=== PATIENT | male | born 1960 | race Two or more races ===

== ENCOUNTER 2021-02-16 15:21 | Inpatient (IN) | payer BC, MEDICAID ==
[2021-02-16] VITALS (17 sets, daily range): BP systolic 81–170; BP diastolic 40–65
[~2021-02-16] VITALS: Ht 175.3 cm; Wt 122.2 kg
[2021-02-16] MEDS: MIDAZOLAM DRIP 50 mg/50mL 50 ML IV SCH (15:33)
[2021-02-16] MEDS ORDERED: ETOMIDATE (2MG/ML) 20ML VIAL IV ONE (15:45)
[2021-02-16] MEDS ORDERED: SUCCINYLCHOLINE CHLORIDE 20 MG/ML 10ML VIAL IV ONE (15:45)
[2021-02-16] MEDS ORDERED: MIDAZOLAM HCL 5 MG/ML-1ML VIAL IV ONE (15:45)
[2021-02-16] MEDS ORDERED: NOREPINEPHRINE 8 MG/250ML KIT 250 ML IV ONE (15:52)
[2021-02-16] MEDS: NOREPINEPHRINE 8 MG/250ML KIT 250 ML IV SCH (15:56)
[2021-02-16] MEDS ORDERED: AMIODARONE HCL (50 MG/ ML) 3 ML VIAL IV ONE (15:58)
[2021-02-16] MEDS ORDERED: AMIODARONE HCL 150 MG in D5W 5% 100 ML IV ONE (16:00)
[2021-02-16 16:06] LABS: Basophils # (auto) 0 10 ^3/uL (0-0.2); Basophils % (auto) 0.3 % (0.0-2.0); Eosinophils # (auto) 0.2 10 ^3/uL (0-0.8); Eosinophils % (auto) 2.1 % (0.0-7.0); Hematocrit 41.2 % (41.0-53.0); Hemoglobin 13.8 g/dL (13.5-17.5); Mean Corpuscular Hemoglobin 30.1 pg (28.0-32.0); Mean Corpuscular Hgb Conc. 33.5 g/dL (32.0-36.0); Mean Corpuscular Volume 89.7 fL (80.0-100.0); Monocytes # (auto) 0.7 10 ^3/uL (0-1.3); Monocytes % (auto) 7.9 % (0.0-12.0); Neutrophils # (auto) 6.1 10 ^3/uL (1.6-8.6); Neutrophils % (auto) 67.7 % (37.0-80.0); Nucleated Red Blood Cells % 0.1 %; Platelet Count (auto) 156 10^3/uL (140-450); Red Cell Distribution Width 17.3 % (11.8-14.3); White Blood Cell 9.1 10^3/uL (4.4-10.8)
[2021-02-16] MEDS ORDERED: AMIODARONE 450mg/250ml AE 250 ML IV SCH (16:15)
[2021-02-16 16:19] LABS: Albumin 3.6 g/dL (3.4-5.0); Calcium 8.8 mg/dL (8.5-10.1); Magnesium 2.6 mg/dL (1.6-2.6); Potassium 4.1 mmol/L (3.5-5.1)
[2021-02-16 16:25] LABS: BUN/Creatinine Ratio 18.8; Bilirubin, Total 0.5 mg/dL (0.2-1.0); CRP High Sensitivity 0.72 mg/dL (< 0.3); Total Protein 7.9 g/dL (6.4-8.2)
[2021-02-16] MEDS ORDERED: cefTRIAXone 1GM/50ML D5W 50 ML IV ONE (16:30)
[2021-02-16] MEDS ORDERED: CLINDAMYCIN 600MG IV 50 ML IV ONE (16:30)
[2021-02-16 17:04] LABS: INR 1.23 (0.9-1.15); Partial Thromboplastin Time 26.7 sec (23.0-31.2)
[2021-02-16] MEDS ORDERED: ENOXAPARIN SOD 150 MG/1 ML SYRINGE SC ONE (17:15)
[2021-02-16] MEDS ORDERED: MORPHINE SULF INJ 2 MG/ML SYRINGE 1ML IV PRN (18:00)
[2021-02-16] MEDS ORDERED: FUROSEMIDE 20 MG/2 ML VIAL IV ONE (18:00)
[2021-02-16] MEDS ORDERED: ASPirin-EC 325mg tab PO ONE (18:00)
[2021-02-16] MEDS: PHENYLEPHRINE INJ 40 MG in SODIUM CHL 0.9% 246 ML IV SCH (18:00)
[2021-02-16] MEDS ORDERED: NITROGLYCERIN 0.4 MG SL TAB SL PRN (18:00)
[2021-02-16] MEDS ORDERED: HEPARIN DRIP/D5W 100UNITS/ML 250 ML IV SCH (18:00)
[2021-02-16] MEDS ORDERED: HEPARIN SODIUM (PORCINE) 5000 UNITS/ML 1ML VIAL IV ONE (18:00)
[2021-02-16] MEDS ORDERED: ASPirin 325 MG TAB PO ONE (18:30)
[2021-02-16] MEDS: PIPERACILLIN-TAZOB 3.375GM 100 ML IV SCH (18:55)
[2021-02-16 19:46] LABS: Urine Amorphous Crystal FEW /hpf (None Seen); Urine Bacteria NONE SEEN /hpf (None Seen); Urine Blood 3+ /uL (Negative); Urine Mucus FEW (None Seen); Urine Specific Gravity 1.015 (1.001-1.035); Urine WBC 85 /hpf (0 - 3); Urine WBC Clumps PRESENT /hpf (None Seen)
[2021-02-16] MEDS: AMIODARONE 450mg/250ml AE 250 ML IV SCH (23:19)
[2021-02-17] VITALS (68 sets, daily range): BP systolic 72–141; BP diastolic 28–69
[2021-02-17] MEDS: MIDAZOLAM DRIP 50 mg/50mL 50 ML IV SCH ×5 (00:24→16:45)
[2021-02-17] MEDS: PIPERACILLIN-TAZOB 3.375GM 100 ML IV SCH ×4 (00:29→18:12)
[2021-02-17] MEDS: fentaNYL Drip 2500mCg/250mlNS 250 ML IV SCH ×3 (00:45→21:42)
[2021-02-17] MEDS: PROPOFOL 100 ML IV SCH (00:45)
[2021-02-17] MEDS ORDERED: SULF400I3 PO (01:38)
[2021-02-17] MEDS ORDERED: POTA10TA51 PO (01:38)
[2021-02-17] MEDS ORDERED: CLIN150C PO (01:38)
[2021-02-17] MEDS ORDERED: FURO20TA3 PO (01:38)
[2021-02-17 03:58] LABS: Basophils # (auto) 0 10 ^3/uL (0-0.2); Basophils % (auto) 0.2 % (0.0-2.0); Eosinophils # (auto) 0 10 ^3/uL (0-0.8); Eosinophils % (auto) 0.1 % (0.0-7.0); Hematocrit 39.1 % (41.0-53.0); Hemoglobin 13.3 g/dL (13.5-17.5); Lymphocytes # (auto) 0.9 10 ^3/uL (0.4-5.4); Lymphocytes % (auto) 8.6 % (10.0-50.0); Mean Corpuscular Hemoglobin 30.3 pg (28.0-32.0); Mean Corpuscular Volume 89.1 fL (80.0-100.0); Monocytes # (auto) 1.1 10 ^3/uL (0-1.3); Monocytes % (auto) 9.9 % (0.0-12.0); Neutrophils # (auto) 8.7 10 ^3/uL (1.6-8.6); Neutrophils % (auto) 81.2 % (37.0-80.0); Nucleated Red Blood Cells % 0.1 %; Platelet Count (auto) 144 10^3/uL (140-450); Red Blood Cells 4.39 10^6/uL (4.5-5.90); Red Cell Distribution Width 17.2 % (11.8-14.3); White Blood Cell 10.7 10^3/uL (4.4-10.8)
[2021-02-17 04:16] LABS: INR 1.21 (0.9-1.15); Partial Thromboplastin Time 31.5 sec (23.0-31.2)
[2021-02-17 04:22] LABS: Calcium 8.6 mg/dL (8.5-10.1); Potassium 4.4 mmol/L (3.5-5.1)
[2021-02-17 04:28] LABS: BUN/Creatinine Ratio 13.7
[2021-02-17] MEDS ORDERED: ENOXAPARIN SOD 150 MG/1 ML SYRINGE SC SCH (06:00)
[2021-02-17] MEDS: NOREPINEPHRINE 8 MG/250ML KIT 250 ML IV SCH ×2 (06:11→21:39)
[2021-02-17] MEDS: ASPirin-EC 81 mg tab PO SCH (10:00)
[2021-02-17] MEDS: PHENYLEPHRINE INJ 40 MG in SODIUM CHL 0.9% 246 ML IV SCH (10:40)
[2021-02-17] MEDS: HEPARIN DRIP/D5W 100UNITS/ML 250 ML IV SCH (11:51)
[2021-02-17] MEDS: AMIODARONE 450mg/250ml AE 250 ML IV SCH (13:15)
[2021-02-17 13:30] LABS: Basophils # (auto) 0 10 ^3/uL (0-0.2); Basophils % (auto) 0.3 % (0.0-2.0); Eosinophils # (auto) 0.2 10 ^3/uL (0-0.8); Eosinophils % (auto) 1.5 % (0.0-7.0); Hematocrit 39.3 % (41.0-53.0); Hemoglobin 13.2 g/dL (13.5-17.5); Lymphocytes # (auto) 1.2 10 ^3/uL (0.4-5.4); Lymphocytes % (auto) 11.5 % (10.0-50.0); Mean Corpuscular Hemoglobin 29.8 pg (28.0-32.0); Mean Corpuscular Hgb Conc. 33.5 g/dL (32.0-36.0); Monocytes # (auto) 1.1 10 ^3/uL (0-1.3); Monocytes % (auto) 11.1 % (0.0-12.0); Neutrophils # (auto) 7.6 10 ^3/uL (1.6-8.6); Neutrophils % (auto) 75.6 % (37.0-80.0); Nucleated Red Blood Cells % 0.1 %; Platelet Count (auto) 137 10^3/uL (140-450); Red Blood Cells 4.42 10^6/uL (4.5-5.90); Red Cell Distribution Width 17.4 % (11.8-14.3); White Blood Cell 10.1 10^3/uL (4.4-10.8)
[2021-02-17 13:43] LABS: INR 1.29 (0.9-1.15); Partial Thromboplastin Time 39.9 sec (23.0-31.2)
[2021-02-17 21:48] LABS: INR 1.3 (0.9-1.15); Partial Thromboplastin Time 56.7 sec (23.0-31.2)
[2021-02-17 22:32] LABS: Magnesium 2.4 mg/dL (1.6-2.6); Potassium 3.8 mmol/L (3.5-5.1)
[2021-02-18] VITALS (75 sets, daily range): BP systolic 89–123; BP diastolic 36–68
[2021-02-18] MEDS: MIDAZOLAM DRIP 50 mg/50mL 50 ML IV SCH ×5 (00:12→17:57)
[2021-02-18] MEDS: PIPERACILLIN-TAZOB 3.375GM 100 ML IV SCH ×2 (00:12→06:09)
[2021-02-18] MEDS: PROPOFOL 100 ML IV SCH (00:13)
[2021-02-18 02:42] LABS: INR 1.29 (0.9-1.15)
[2021-02-18 02:47] LABS: Partial Thromboplastin Time 73.4 sec (23.0-31.2)
[2021-02-18] MEDS: PHENYLEPHRINE INJ 40 MG in SODIUM CHL 0.9% 246 ML IV SCH ×2 (03:20→20:00)
[2021-02-18] MEDS: AMIODARONE 450mg/250ml AE 250 ML IV SCH ×2 (04:15→19:15)
[2021-02-18 04:26] LABS: Calcium 8.4 mg/dL (8.5-10.1); Potassium 3.9 mmol/L (3.5-5.1)
[2021-02-18 04:33] LABS: BUN/Creatinine Ratio 11.2
[2021-02-18 04:34] LABS: Basophils # (auto) 0 10 ^3/uL (0-0.2); Basophils % (auto) 0.2 % (0.0-2.0); Eosinophils # (auto) 0.2 10 ^3/uL (0-0.8); Hematocrit 37.3 % (41.0-53.0); Lymphocytes % (auto) 9.1 % (10.0-50.0); Mean Corpuscular Hemoglobin 30.7 pg (28.0-32.0); Mean Corpuscular Hgb Conc. 34.7 g/dL (32.0-36.0); Mean Corpuscular Volume 88.6 fL (80.0-100.0); Monocytes # (auto) 0.9 10 ^3/uL (0-1.3); Monocytes % (auto) 8.1 % (0.0-12.0); Neutrophils # (auto) 8.5 10 ^3/uL (1.6-8.6); Neutrophils % (auto) 80.6 % (37.0-80.0); Nucleated Red Blood Cells % 0.1 %; Platelet Count (auto) 126 10^3/uL (140-450); Red Blood Cells 4.22 10^6/uL (4.5-5.90); Red Cell Distribution Width 16.9 % (11.8-14.3); White Blood Cell 10.5 10^3/uL (4.4-10.8)
[2021-02-18] MEDS: HEPARIN DRIP/D5W 100UNITS/ML 250 ML IV SCH (06:12)
[2021-02-18] MEDS: SODIUM CHLORIDE 0.9% 1,000 ML IV SCH ×2 (08:08→20:53)
[2021-02-18 09:00] LABS: INR 1.3 (0.9-1.15)
[2021-02-18 09:02] LABS: Partial Thromboplastin Time 76.9 sec (23.0-31.2)
[2021-02-18] MEDS: ASPirin-EC 81 mg tab PO SCH (11:11)
[2021-02-18] MEDS: MEROPENEM 1GM IVPB 100 ML IV SCH ×2 (14:41→21:23)
[2021-02-18 15:45] LABS: INR 1.25 (0.9-1.15); Partial Thromboplastin Time 61.3 sec (23.0-31.2)
[2021-02-18] MEDS: NOREPINEPHRINE 8 MG/250ML KIT 250 ML IV SCH (20:53)
[2021-02-18] MEDS: fentaNYL Drip 2500mCg/250mlNS 250 ML IV SCH (21:10)
[2021-02-18 21:28] LABS: INR 1.28 (0.9-1.15); Partial Thromboplastin Time 55.3 sec (23.0-31.2)
[2021-02-19] VITALS (96 sets, daily range): BP systolic 82–146; BP diastolic 40–88
[2021-02-19] MEDS: PROPOFOL 100 ML IV SCH (00:45)
[2021-02-19 01:32] LABS: Protein, Urine 48.6 mg/dL (0.0-11.9)
[2021-02-19 01:43] LABS: Urine Amorphous Crystal MANY /hpf (None Seen); Urine Bacteria FEW /hpf (None Seen); Urine Blood 2+ /uL (Negative); Urine Specific Gravity 1.014 (1.001-1.035); Urine WBC 37 /hpf (0 - 3)
[2021-02-19 03:35] LABS: INR 1.32 (0.9-1.15); Partial Thromboplastin Time 51.7 sec (23.0-31.2)
[2021-02-19 04:04] LABS: Basophils # (auto) 0 10 ^3/uL (0-0.2); Basophils % (auto) 0.2 % (0.0-2.0); Eosinophils # (auto) 0.4 10 ^3/uL (0-0.8); Eosinophils % (auto) 4.2 % (0.0-7.0); Hematocrit 35.6 % (41.0-53.0); Hemoglobin 12.2 g/dL (13.5-17.5); Lymphocytes # (auto) 1.2 10 ^3/uL (0.4-5.4); Lymphocytes % (auto) 12.9 % (10.0-50.0); Mean Corpuscular Hemoglobin 30.4 pg (28.0-32.0); Mean Corpuscular Hgb Conc. 34.3 g/dL (32.0-36.0); Mean Corpuscular Volume 88.4 fL (80.0-100.0); Monocytes # (auto) 0.7 10 ^3/uL (0-1.3); Monocytes % (auto) 7.6 % (0.0-12.0); Neutrophils # (auto) 7.1 10 ^3/uL (1.6-8.6); Neutrophils % (auto) 75.1 % (37.0-80.0); Platelet Count (auto) 123 10^3/uL (140-450); Red Blood Cells 4.02 10^6/uL (4.5-5.90); Red Cell Distribution Width 17.1 % (11.8-14.3); White Blood Cell 9.4 10^3/uL (4.4-10.8)
[2021-02-19 04:17] LABS: BUN/Creatinine Ratio 11.2; Magnesium 2.3 mg/dL (1.6-2.6); Potassium 3.7 mmol/L (3.5-5.1)
[2021-02-19] MEDS: MIDAZOLAM DRIP 50 mg/50mL 50 ML IV SCH ×2 (04:40→19:38)
[2021-02-19] MEDS: MEROPENEM 1GM IVPB 100 ML IV SCH ×3 (06:01→21:43)
[2021-02-19] MEDS: HEPARIN DRIP/D5W 100UNITS/ML 250 ML IV SCH (08:37)
[2021-02-19] MEDS: ASPirin-EC 81 mg tab PO SCH (10:00)
[2021-02-19] MEDS: AMIODARONE 450mg/250ml AE 250 ML IV SCH (10:15)
[2021-02-19] MEDS: SODIUM CHLORIDE 0.9% 1,000 ML IV SCH ×2 (11:15→23:31)
[2021-02-19] MEDS: NOREPINEPHRINE 8 MG/250ML KIT 250 ML IV SCH (12:10)
[2021-02-19] MEDS: PHENYLEPHRINE INJ 40 MG in SODIUM CHL 0.9% 246 ML IV SCH (12:40)
[2021-02-19] MEDS ORDERED: hydrALAZINE HCL 20 MG/ML VL IV PRN (16:00)
[2021-02-19] MEDS: AMIODARONE HCL 200 MG TAB GT SCH (21:43)
[2021-02-20] VITALS (107 sets, daily range): BP systolic 87–136; BP diastolic 38–88
[2021-02-20] MEDS: PROPOFOL 100 ML IV SCH (00:45)
[2021-02-20] MEDS: NOREPINEPHRINE 8 MG/250ML KIT 250 ML IV SCH ×2 (01:30→14:50)
[2021-02-20 04:01] LABS: Basophils # (auto) 0 10 ^3/uL (0-0.2); Basophils % (auto) 0.3 % (0.0-2.0); Eosinophils # (auto) 0.5 10 ^3/uL (0-0.8); Eosinophils % (auto) 6.8 % (0.0-7.0); Hematocrit 34.2 % (41.0-53.0); Hemoglobin 11.6 g/dL (13.5-17.5); Lymphocytes # (auto) 1.1 10 ^3/uL (0.4-5.4); Lymphocytes % (auto) 15.4 % (10.0-50.0); Mean Corpuscular Hemoglobin 30.5 pg (28.0-32.0); Mean Corpuscular Volume 89.7 fL (80.0-100.0); Monocytes # (auto) 0.6 10 ^3/uL (0-1.3); Monocytes % (auto) 8.5 % (0.0-12.0); Neutrophils # (auto) 4.8 10 ^3/uL (1.6-8.6); Nucleated Red Blood Cells % 0.2 %; Platelet Count (auto) 120 10^3/uL (140-450); Red Blood Cells 3.81 10^6/uL (4.5-5.90); Red Cell Distribution Width 17.1 % (11.8-14.3)
[2021-02-20 04:02] LABS: INR 1.29 (0.9-1.15); Partial Thromboplastin Time 50.3 sec (23.0-31.2)
[2021-02-20 04:04] LABS: BUN/Creatinine Ratio 11.8; Potassium 3.8 mmol/L (3.5-5.1)
[2021-02-20] MEDS: PHENYLEPHRINE INJ 40 MG in SODIUM CHL 0.9% 246 ML IV SCH ×2 (05:20→22:00)
[2021-02-20] MEDS: MEROPENEM 1GM IVPB 100 ML IV SCH ×3 (05:30→22:06)
[2021-02-20] MEDS: MIDAZOLAM DRIP 50 mg/50mL 50 ML IV SCH ×4 (05:31→17:49)
[2021-02-20] MEDS: fentaNYL Drip 2500mCg/250mlNS 250 ML IV SCH ×2 (08:00→22:07)
[2021-02-20] MEDS: AMIODARONE HCL 200 MG TAB GT SCH ×2 (10:30→22:06)
[2021-02-20] MEDS ORDERED: ASPirin 81 mg TAB ONE (10:41)
[2021-02-20] MEDS: HEPARIN DRIP/D5W 100UNITS/ML 250 ML IV SCH (11:30)
[2021-02-20] MEDS: SODIUM CHLORIDE 0.9% 1,000 ML IV SCH (14:54)
[2021-02-21] VITALS (103 sets, daily range): BP systolic 87–146; BP diastolic 42–92
[2021-02-21] MEDS: PROPOFOL 100 ML IV SCH (00:45)
[2021-02-21] MEDS: MIDAZOLAM DRIP 50 mg/50mL 50 ML IV SCH ×5 (00:45→20:45)
[2021-02-21] MEDS: SODIUM CHLORIDE 0.9% 1,000 ML IV SCH ×2 (02:36→14:51)
[2021-02-21] MEDS: NOREPINEPHRINE 8 MG/250ML KIT 250 ML IV SCH ×2 (04:10→17:28)
[2021-02-21 04:12] LABS: Basophils # (auto) 0 10 ^3/uL (0-0.2); Basophils % (auto) 0.3 % (0.0-2.0); Eosinophils # (auto) 0.4 10 ^3/uL (0-0.8); Eosinophils % (auto) 8.2 % (0.0-7.0); Hematocrit 33.3 % (41.0-53.0); Hemoglobin 11.2 g/dL (13.5-17.5); Lymphocytes # (auto) 0.9 10 ^3/uL (0.4-5.4); Lymphocytes % (auto) 19.5 % (10.0-50.0); Mean Corpuscular Hemoglobin 30.2 pg (28.0-32.0); Mean Corpuscular Hgb Conc. 33.7 g/dL (32.0-36.0); Mean Corpuscular Volume 89.4 fL (80.0-100.0); Monocytes # (auto) 0.6 10 ^3/uL (0-1.3); Monocytes % (auto) 11.5 % (0.0-12.0); Neutrophils # (auto) 2.9 10 ^3/uL (1.6-8.6); Neutrophils % (auto) 60.5 % (37.0-80.0); Nucleated Red Blood Cells % 0.1 %; Platelet Count (auto) 113 10^3/uL (140-450); Red Blood Cells 3.72 10^6/uL (4.5-5.90); Red Cell Distribution Width 17.4 % (11.8-14.3); White Blood Cell 4.8 10^3/uL (4.4-10.8)
[2021-02-21 04:28] LABS: BUN/Creatinine Ratio 14.9; Calcium 8.2 mg/dL (8.5-10.1); Potassium 4.1 mmol/L (3.5-5.1)
[2021-02-21 04:31] LABS: INR 1.24 (0.9-1.15); Partial Thromboplastin Time 47.8 sec (23.0-31.2)
[2021-02-21] MEDS: MEROPENEM 1GM IVPB 100 ML IV SCH ×3 (06:06→22:11)
[2021-02-21] MEDS: HEPARIN DRIP/D5W 100UNITS/ML 250 ML IV SCH (11:30)
[2021-02-21] MEDS: ASPirin 81 mg TAB PO SCH (11:40)
[2021-02-21] MEDS: AMIODARONE HCL 200 MG TAB GT SCH ×2 (11:40→22:12)
[2021-02-21 12:10] LABS: INR 1.22 (0.9-1.15); Partial Thromboplastin Time 53.4 sec (23.0-31.2)
[2021-02-21] MEDS: PHENYLEPHRINE INJ 40 MG in SODIUM CHL 0.9% 246 ML IV SCH (12:42)
[2021-02-21 18:44] LABS: INR 1.24 (0.9-1.15); Partial Thromboplastin Time 51.2 sec (23.0-31.2)
[2021-02-22] VITALS (77 sets, daily range): BP systolic 95–153; BP diastolic 41–90
[2021-02-22] MEDS: PROPOFOL 100 ML IV SCH (00:45)
[2021-02-22 00:58] LABS: INR 1.22 (0.9-1.15); Partial Thromboplastin Time 54.3 sec (23.0-31.2)
[2021-02-22] MEDS: MIDAZOLAM DRIP 50 mg/50mL 50 ML IV SCH ×5 (01:45→21:45)
[2021-02-22] MEDS: fentaNYL Drip 2500mCg/250mlNS 250 ML IV SCH ×2 (03:09→20:05)
[2021-02-22] MEDS: HEPARIN DRIP/D5W 100UNITS/ML 250 ML IV SCH ×3 (03:13→22:27)
[2021-02-22 04:30] LABS: Basophils # (auto) 0 10 ^3/uL (0-0.2); Basophils % (auto) 0.3 % (0.0-2.0); Eosinophils # (auto) 0.4 10 ^3/uL (0-0.8); Eosinophils % (auto) 7.3 % (0.0-7.0); Hematocrit 32.7 % (41.0-53.0); Hemoglobin 11.1 g/dL (13.5-17.5); Lymphocytes # (auto) 0.8 10 ^3/uL (0.4-5.4); Lymphocytes % (auto) 13.9 % (10.0-50.0); Mean Corpuscular Hemoglobin 30.1 pg (28.0-32.0); Mean Corpuscular Volume 88.5 fL (80.0-100.0); Monocytes # (auto) 0.7 10 ^3/uL (0-1.3); Monocytes % (auto) 11.9 % (0.0-12.0); Neutrophils # (auto) 3.8 10 ^3/uL (1.6-8.6); Neutrophils % (auto) 66.6 % (37.0-80.0); Nucleated Red Blood Cells % 0.1 %; Platelet Count (auto) 116 10^3/uL (140-450); Red Cell Distribution Width 17.3 % (11.8-14.3); White Blood Cell 5.7 10^3/uL (4.4-10.8)
[2021-02-22 04:43] LABS: BUN/Creatinine Ratio 17.7; Calcium 8.3 mg/dL (8.5-10.1); Potassium 4.2 mmol/L (3.5-5.1)
[2021-02-22 04:50] LABS: INR 1.24 (0.9-1.15); Partial Thromboplastin Time 51.3 sec (23.0-31.2)
[2021-02-22] MEDS: SODIUM CHLORIDE 0.9% 1,000 ML IV SCH ×3 (04:50→20:50)
[2021-02-22] MEDS: MEROPENEM 1GM IVPB 100 ML IV SCH (05:42)
[2021-02-22] MEDS: NOREPINEPHRINE 8 MG/250ML KIT 250 ML IV SCH ×2 (06:50→20:10)
[2021-02-22] MEDS: PHENYLEPHRINE INJ 40 MG in SODIUM CHL 0.9% 246 ML IV SCH (07:20)
[2021-02-22] MEDS: ASPirin 81 mg TAB PO SCH (11:00)
[2021-02-22] MEDS: AMIODARONE HCL 200 MG TAB GT SCH ×2 (11:00→21:51)
[2021-02-22] MEDS ORDERED: ceFAZolin 1GM/50ML 50 ML IV ONE (12:15)
[2021-02-22] MEDS: ceFAZolin 1GM/50ML 50 ML IV SCH ×2 (14:06→21:51)
[2021-02-23] VITALS (70 sets, daily range): BP systolic 100–157; BP diastolic 38–96
[2021-02-23] MEDS: PROPOFOL 100 ML IV SCH (00:45)
[2021-02-23] MEDS: MIDAZOLAM DRIP 50 mg/50mL 50 ML IV SCH ×5 (02:45→22:45)
[2021-02-23] MEDS: SODIUM CHLORIDE 0.9% 1,000 ML IV SCH ×2 (02:51→23:00)
[2021-02-23 03:35] LABS: Basophils # (auto) 0 10 ^3/uL (0-0.2); Basophils % (auto) 0.3 % (0.0-2.0); Eosinophils # (auto) 0.4 10 ^3/uL (0-0.8); Eosinophils % (auto) 5.5 % (0.0-7.0); Hematocrit 32.8 % (41.0-53.0); Hemoglobin 10.8 g/dL (13.5-17.5); Lymphocytes # (auto) 0.7 10 ^3/uL (0.4-5.4); Lymphocytes % (auto) 10.2 % (10.0-50.0); Mean Corpuscular Hemoglobin 29.5 pg (28.0-32.0); Mean Corpuscular Volume 89.2 fL (80.0-100.0); Monocytes # (auto) 0.8 10 ^3/uL (0-1.3); Monocytes % (auto) 11.8 % (0.0-12.0); Neutrophils # (auto) 4.9 10 ^3/uL (1.6-8.6); Neutrophils % (auto) 72.2 % (37.0-80.0); Platelet Count (auto) 111 10^3/uL (140-450); Red Blood Cells 3.68 10^6/uL (4.5-5.90); Red Cell Distribution Width 17.7 % (11.8-14.3); White Blood Cell 6.8 10^3/uL (4.4-10.8)
[2021-02-23 03:50] LABS: INR 1.2 (0.9-1.15); Partial Thromboplastin Time 56.1 sec (23.0-31.2)
[2021-02-23 03:52] LABS: BUN/Creatinine Ratio 21.4; Calcium 8.4 mg/dL (8.5-10.1); Potassium 4.4 mmol/L (3.5-5.1)
[2021-02-23] MEDS: ceFAZolin 1GM/50ML 50 ML IV SCH ×3 (05:42→21:38)
[2021-02-23] MEDS: NOREPINEPHRINE 8 MG/250ML KIT 250 ML IV SCH ×2 (09:30→22:50)
[2021-02-23] MEDS: PANTOPRAZOLE 40 MG/10 ML VIAL INJ IV SCH (10:25)
[2021-02-23] MEDS: ASPirin 81 mg TAB PO SCH (10:25)
[2021-02-23] MEDS: AMIODARONE HCL 200 MG TAB GT SCH ×2 (10:26→21:38)
[2021-02-23] MEDS: fentaNYL Drip 2500mCg/250mlNS 250 ML IV SCH ×2 (10:27→21:39)
[2021-02-23] MEDS: PHENYLEPHRINE INJ 40 MG in SODIUM CHL 0.9% 246 ML IV SCH ×3 (15:02)
[2021-02-24] VITALS (89 sets, daily range): BP systolic 104–165; BP diastolic 57–98
[2021-02-24] MEDS: PROPOFOL 100 ML IV SCH (00:45)
[2021-02-24] MEDS: MIDAZOLAM DRIP 50 mg/50mL 50 ML IV SCH ×5 (03:45→23:45)
[2021-02-24 03:53] LABS: Basophils # (auto) 0 10 ^3/uL (0-0.2); Basophils % (auto) 0.3 % (0.0-2.0); Eosinophils # (auto) 0.3 10 ^3/uL (0-0.8); Hematocrit 32.6 % (41.0-53.0); Lymphocytes # (auto) 0.8 10 ^3/uL (0.4-5.4); Lymphocytes % (auto) 12.2 % (10.0-50.0); Mean Corpuscular Hemoglobin 30.3 pg (28.0-32.0); Mean Corpuscular Hgb Conc. 33.6 g/dL (32.0-36.0); Mean Corpuscular Volume 90.1 fL (80.0-100.0); Monocytes # (auto) 0.8 10 ^3/uL (0-1.3); Neutrophils # (auto) 4.8 10 ^3/uL (1.6-8.6); Neutrophils % (auto) 71.5 % (37.0-80.0); Nucleated Red Blood Cells % 0.1 %; Platelet Count (auto) 114 10^3/uL (140-450); Red Blood Cells 3.62 10^6/uL (4.5-5.90); Red Cell Distribution Width 17.3 % (11.8-14.3); White Blood Cell 6.7 10^3/uL (4.4-10.8)
[2021-02-24 04:10] LABS: BUN/Creatinine Ratio 23.6; Calcium 8.9 mg/dL (8.5-10.1); Magnesium 2.9 mg/dL (1.6-2.6); Potassium 4.7 mmol/L (3.5-5.1)
[2021-02-24 04:50] LABS: INR 1.29 (0.9-1.15)
[2021-02-24] MEDS: ceFAZolin 1GM/50ML 50 ML IV SCH ×3 (05:49→22:28)
[2021-02-24] MEDS: HEPARIN DRIP/D5W 100UNITS/ML 250 ML IV SCH ×2 (08:40→16:30)
[2021-02-24] MEDS: PHENYLEPHRINE INJ 40 MG in SODIUM CHL 0.9% 246 ML IV SCH (09:05)
[2021-02-24] MEDS: fentaNYL Drip 2500mCg/250mlNS 250 ML IV SCH ×2 (09:06→22:00)
[2021-02-24] MEDS: ASPirin 81 mg TAB PO SCH (10:35)
[2021-02-24] MEDS: AMIODARONE HCL 200 MG TAB GT SCH ×2 (10:35→22:27)
[2021-02-24] MEDS: PANTOPRAZOLE 40 MG/10 ML VIAL INJ IV SCH (10:35)
[2021-02-24] MEDS ORDERED: LIDOCAINE 2%HCL (LOCAL ANESTH.) INJ 20ML MDV ONE (10:42)
[2021-02-24] MEDS ORDERED: IODIXANOL 320MG/ML 100ML BTL IV ONE (10:42)
[2021-02-24] MEDS ORDERED: MIDAZOLAM HCL 1MG/1ML-2 ML VIAL ONE ×2 (10:57→11:21)
[2021-02-24] MEDS ORDERED: VERAPAMIL 2.5MG/ML INJ 2ML VIAL IV ONE (11:08)
[2021-02-24] MEDS ORDERED: SODIUM CHL 0.9% 0 ML ONE (11:08)
[2021-02-24] MEDS ORDERED: ANGIOMAX 250 MG VIAL IV ONE (11:08)
[2021-02-24] MEDS ORDERED: EPINEPHrine HCL 1 MG/10 ML SYRG ONE (11:52)
[2021-02-24] MEDS ORDERED: ATROPINE SULF 1 MG/10ml SYR ONE (11:52)
[2021-02-24] MEDS ORDERED: LIDOCAINE HCL 100 MG/5ML (2%) SYRG INJ IV ONE (11:52)
[2021-02-24] MEDS: NOREPINEPHRINE 8 MG/250ML KIT 250 ML IV SCH (12:10)
[2021-02-24] MEDS ORDERED: FAMOTIDINE (10MG/ML) 2ML VL IV ONE (17:45)
[2021-02-24] MEDS ORDERED: methylPREDNISolone SOD SUCC 125 MG/2 ML VL IV ONE (17:45)
[2021-02-24] MEDS ORDERED: diphenhdrAMINE HCL 50 MG/1 ML VL IV ONE (17:45)
[2021-02-24] MEDS: METOPROLOL TARTRATE 50 MG TAB PO SCH (22:28)
[2021-02-25] VITALS (69 sets, daily range): BP systolic 115–153; BP diastolic 57–104
[2021-02-25] MEDS: PROPOFOL 100 ML IV SCH (00:45)
[2021-02-25] MEDS: NOREPINEPHRINE 8 MG/250ML KIT 250 ML IV SCH (01:30)
[2021-02-25] MEDS: PHENYLEPHRINE INJ 40 MG in SODIUM CHL 0.9% 246 ML IV SCH (02:00)
[2021-02-25 03:33] LABS: Basophils # (auto) 0 10 ^3/uL (0-0.2); Eosinophils # (auto) 0 10 ^3/uL (0-0.8); Eosinophils % (auto) 0.1 % (0.0-7.0); Hematocrit 32.7 % (41.0-53.0); Hemoglobin 11.1 g/dL (13.5-17.5); Lymphocytes # (auto) 0.4 10 ^3/uL (0.4-5.4); Mean Corpuscular Hemoglobin 30.3 pg (28.0-32.0); Mean Corpuscular Hgb Conc. 33.8 g/dL (32.0-36.0); Mean Corpuscular Volume 89.6 fL (80.0-100.0); Monocytes # (auto) 0.1 10 ^3/uL (0-1.3); Monocytes % (auto) 1.6 % (0.0-12.0); Neutrophils % (auto) 89.3 % (37.0-80.0); Platelet Count (auto) 110 10^3/uL (140-450); Red Blood Cells 3.65 10^6/uL (4.5-5.90); Red Cell Distribution Width 17.5 % (11.8-14.3); White Blood Cell 4.5 10^3/uL (4.4-10.8)
[2021-02-25 03:45] LABS: INR 1.51 (0.9-1.15); Partial Thromboplastin Time 56.4 sec (23.0-31.2)
[2021-02-25 03:48] LABS: BUN/Creatinine Ratio 26.2; Calcium 8.9 mg/dL (8.5-10.1); Potassium 5.2 mmol/L (3.5-5.1)
[2021-02-25] MEDS: MIDAZOLAM DRIP 50 mg/50mL 50 ML IV SCH ×2 (04:45→09:45)
[2021-02-25] MEDS: ceFAZolin 1GM/50ML 50 ML IV SCH ×3 (05:52→23:25)
[2021-02-25] MEDS: fentaNYL Drip 2500mCg/250mlNS 250 ML IV SCH (08:49)
[2021-02-25] MEDS ORDERED: FUROSEMIDE 40 MG/4 ML VIAL IV SCH (10:00)
[2021-02-25] MEDS: ASPirin 81 mg TAB PO SCH (10:14)
[2021-02-25] MEDS: PANTOPRAZOLE 40 MG/10 ML VIAL INJ IV SCH (10:14)
[2021-02-25] MEDS: METOPROLOL TARTRATE 50 MG TAB PO SCH ×2 (10:15→22:09)
[2021-02-25] MEDS: AMIODARONE HCL 200 MG TAB GT SCH ×2 (10:15→21:32)
[2021-02-25] MEDS ORDERED: LIDOCAINE 2%HCL (LOCAL ANESTH.) INJ 20ML MDV ONE ×2 (11:37→11:49)
[2021-02-25] MEDS: ONDANSETRON HCL 4 MG/2 ML VIAL IV PRN (22:27)
[2021-02-26] VITALS (16 sets, daily range): BP systolic 106–161; BP diastolic 61–97
[2021-02-26] MEDS: VERAPAMIL HCL 40 MG TAB PO SCH ×4 (00:01→22:03)
[2021-02-26] MEDS: fentaNYL Drip 2500mCg/250mlNS 250 ML IV SCH (00:45)
[2021-02-26 04:16] LABS: Basophils # (auto) 0 10 ^3/uL (0-0.2); Basophils % (auto) 0.2 % (0.0-2.0); Eosinophils # (auto) 0 10 ^3/uL (0-0.8); Eosinophils % (auto) 0.3 % (0.0-7.0); Hematocrit 33.7 % (41.0-53.0); Hemoglobin 11.3 g/dL (13.5-17.5); Lymphocytes # (auto) 0.9 10 ^3/uL (0.4-5.4); Lymphocytes % (auto) 10.7 % (10.0-50.0); Mean Corpuscular Hemoglobin 30.5 pg (28.0-32.0); Mean Corpuscular Hgb Conc. 33.5 g/dL (32.0-36.0); Mean Corpuscular Volume 90.9 fL (80.0-100.0); Monocytes % (auto) 11.8 % (0.0-12.0); Neutrophils # (auto) 6.6 10 ^3/uL (1.6-8.6); Platelet Count (auto) 150 10^3/uL (140-450); Red Blood Cells 3.71 10^6/uL (4.5-5.90); Red Cell Distribution Width 18.3 % (11.8-14.3); White Blood Cell 8.6 10^3/uL (4.4-10.8)
[2021-02-26 04:33] LABS: BUN/Creatinine Ratio 25.1; Calcium 9.2 mg/dL (8.5-10.1); Potassium 4.7 mmol/L (3.5-5.1)
[2021-02-26 04:48] LABS: INR 2.33 (0.9-1.15); Partial Thromboplastin Time 30.3 sec (23.0-31.2)
[2021-02-26] MEDS: ceFAZolin 1GM/50ML 50 ML IV SCH ×3 (06:06→18:36)
[2021-02-26] MEDS: ONDANSETRON HCL 4 MG/2 ML VIAL IV PRN ×2 (07:11→18:37)
[2021-02-26] MEDS ORDERED: VANCOMYCIN HCL 1000 MG VL ONE (07:26)
[2021-02-26] MEDS ORDERED: fentaNYL CITRATE 100 MCG/2 ML VL ONE (07:26)
[2021-02-26] MEDS ORDERED: VANCOMYCIN 1GM/250ML 250 ML IV ONE (07:27)
[2021-02-26] MEDS ORDERED: MIDAZOLAM HCL 1MG/1ML-2 ML VIAL ONE (07:27)
[2021-02-26] MEDS ORDERED: LIDOCAINE 2%HCL (LOCAL ANESTH.) INJ 20ML MDV ONE (07:33)
[2021-02-26] MEDS ORDERED: diphenhdrAMINE HCL 50 MG/1 ML VL ONE (08:40)
[2021-02-26] MEDS ORDERED: FUROSEMIDE 20 MG/2 ML VIAL ONE (09:14)
[2021-02-26] MEDS: ASPirin 81 mg TAB PO SCH (10:00)
[2021-02-26] MEDS: METOPROLOL TARTRATE 50 MG TAB PO SCH ×2 (10:26→22:04)
[2021-02-26] MEDS: PANTOPRAZOLE 40 MG/10 ML VIAL INJ IV SCH (10:27)
[2021-02-26] MEDS ORDERED: VANCOMYCIN 1GM/250ML 250 ML IV SCH (22:00)
[2021-02-26] MEDS: AMIODARONE HCL 200 MG TAB PO SCH (22:04)
[2021-02-26] MEDS: APIXABAN 5 MG TAB PO SCH (22:04)
[2021-02-27] VITALS (13 sets, daily range): BP systolic 110–164; BP diastolic 61–94
[2021-02-27] MEDS: ONDANSETRON HCL 4 MG/2 ML VIAL IV PRN ×2 (00:31→10:13)
[2021-02-27] MEDS: ceFAZolin 1GM/50ML 50 ML IV SCH (02:22)
[2021-02-27] MEDS: VERAPAMIL HCL 40 MG TAB PO SCH ×4 (05:58→23:36)
[2021-02-27] MEDS: ASPirin 81 mg TAB PO SCH (10:00)
[2021-02-27] MEDS: AMIODARONE HCL 200 MG TAB PO SCH ×2 (10:00→22:14)
[2021-02-27] MEDS: METOPROLOL TARTRATE 50 MG TAB PO SCH ×2 (10:00→22:15)
[2021-02-27] MEDS: APIXABAN 5 MG TAB PO SCH ×2 (10:00→22:15)
[2021-02-27] MEDS: FUROSEMIDE 40 MG/4 ML VIAL IV SCH (10:13)
[2021-02-27] MEDS ORDERED: GASTROGRAFIN 120 ML SOL ONE ×2 (13:25→13:31)
[2021-02-27] MEDS: METOCLOPRAMIDE HCL 5MG/ml INJ 2ml VIAL IV SCH ×2 (15:01→22:13)
[2021-02-27 17:17] LABS: BUN/Creatinine Ratio 29.4; Calcium 9.3 mg/dL (8.5-10.1); Potassium 4.2 mmol/L (3.5-5.1)
[2021-02-27] MEDS ORDERED: FLEET ENEMA(ADULT) 135 ML PR ONE (17:45)
[2021-02-27] MEDS: Ensure Enlive Strawberry 8oz Bottle PO SCH (18:00)
[2021-02-27 18:35] LABS: Hematocrit 32.4 % (41.0-53.0); Hemoglobin 10.9 g/dL (13.5-17.5)
[2021-02-27] MEDS: DOCUSATE SOD 100 MG CAP PO SCH (22:14)
[2021-02-28 05:00] VITALS: BP 133/69
[2021-02-28 05:59] LABS: Basophils # (auto) 0 10 ^3/uL (0-0.2); Basophils % (auto) 0.4 % (0.0-2.0); Eosinophils # (auto) 0.3 10 ^3/uL (0-0.8); Eosinophils % (auto) 2.9 % (0.0-7.0); Hematocrit 33.3 % (41.0-53.0); Hemoglobin 11.1 g/dL (13.5-17.5); Lymphocytes # (auto) 0.9 10 ^3/uL (0.4-5.4); Lymphocytes % (auto) 8.5 % (10.0-50.0); Mean Corpuscular Hemoglobin 30.3 pg (28.0-32.0); Mean Corpuscular Hgb Conc. 33.3 g/dL (32.0-36.0); Mean Corpuscular Volume 91.2 fL (80.0-100.0); Monocytes % (auto) 9.4 % (0.0-12.0); Neutrophils # (auto) 8.1 10 ^3/uL (1.6-8.6); Neutrophils % (auto) 78.8 % (37.0-80.0); Platelet Count (auto) 150 10^3/uL (140-450); Red Blood Cells 3.65 10^6/uL (4.5-5.90); Red Cell Distribution Width 17.7 % (11.8-14.3); White Blood Cell 10.3 10^3/uL (4.4-10.8)
[2021-02-28 06:07] LABS: INR 3.03 (0.9-1.15); Partial Thromboplastin Time 38.2 sec (23.0-31.2)
[2021-02-28 06:18] LABS: Potassium 4.4 mmol/L (3.5-5.1)
[2021-02-28] MEDS: VERAPAMIL HCL 40 MG TAB PO SCH ×3 (06:25→21:27)
[2021-02-28] MEDS: METOCLOPRAMIDE HCL 5MG/ml INJ 2ml VIAL IV SCH ×3 (06:25→21:26)
[2021-02-28 06:27] LABS: Albumin 2.9 g/dL (3.4-5.0); BUN/Creatinine Ratio 30.1; Bilirubin, Total 1.6 mg/dL (0.2-1.0); Magnesium 2.6 mg/dL (1.6-2.6); Phosphorus 3.8 mg/dL (2.5-4.90); Total Protein 7.3 g/dL (6.4-8.2)
[2021-02-28] MEDS: Ensure Enlive Strawberry 8oz Bottle PO SCH ×3 (08:16→17:25)
[2021-02-28 09:00] VITALS: BP 121/69
[2021-02-28] MEDS: DOCUSATE SOD 100 MG CAP PO SCH ×2 (10:40→21:27)
[2021-02-28] MEDS: FUROSEMIDE 40 MG/4 ML VIAL IV SCH (10:40)
[2021-02-28] MEDS: AMIODARONE HCL 200 MG TAB PO SCH ×2 (10:40→21:29)
[2021-02-28] MEDS: METOPROLOL TARTRATE 50 MG TAB PO SCH ×2 (10:41→21:30)
[2021-02-28] MEDS: APIXABAN 5 MG TAB PO SCH ×2 (10:41→21:29)
[2021-02-28] MEDS ORDERED: LACTULOSE 20Gm/30ML SOLN PO PRN (12:45)
[2021-02-28 13:00] VITALS: BP 99/55
[2021-02-28] MEDS: ACETAMINOPHEN 325 MG TAB PO PRN (13:02)
[2021-02-28 17:00] VITALS: BP 101/52
[2021-03-01 05:20] LABS: Basophils # (auto) 0 10 ^3/uL (0-0.2); Basophils % (auto) 0.1 % (0.0-2.0); Eosinophils # (auto) 0.1 10 ^3/uL (0-0.8); Eosinophils % (auto) 0.6 % (0.0-7.0); Hematocrit 32.6 % (41.0-53.0); Hemoglobin 10.6 g/dL (13.5-17.5); Lymphocytes # (auto) 0.7 10 ^3/uL (0.4-5.4); Lymphocytes % (auto) 3.1 % (10.0-50.0); Mean Corpuscular Hemoglobin 29.2 pg (28.0-32.0); Mean Corpuscular Hgb Conc. 32.6 g/dL (32.0-36.0); Mean Corpuscular Volume 89.4 fL (80.0-100.0); Monocytes # (auto) 1.4 10 ^3/uL (0-1.3); Monocytes % (auto) 6.1 % (0.0-12.0); Neutrophils # (auto) 20.8 10 ^3/uL (1.6-8.6); Neutrophils % (auto) 90.1 % (37.0-80.0); Platelet Count (auto) 156 10^3/uL (140-450); Red Blood Cells 3.64 10^6/uL (4.5-5.90); Red Cell Distribution Width 17.9 % (11.8-14.3); White Blood Cell 23.1 10^3/uL (4.4-10.8)
[2021-03-01] MEDS: METOCLOPRAMIDE HCL 5MG/ml INJ 2ml VIAL IV SCH (05:40)
[2021-03-01] MEDS: VERAPAMIL HCL 40 MG TAB PO SCH ×3 (05:41→22:13)
[2021-03-01 05:42] LABS: Calcium 9.1 mg/dL (8.5-10.1); Potassium 4.2 mmol/L (3.5-5.1)
[2021-03-01 05:47] LABS: BUN/Creatinine Ratio 31.9
[2021-03-01 05:48] VITALS: BP 113/61
[2021-03-01] MEDS: Ensure Enlive Strawberry 8oz Bottle PO SCH ×3 (08:00→17:48)
[2021-03-01 09:00] VITALS: BP 109/60
[2021-03-01] MEDS: FUROSEMIDE 40 MG/4 ML VIAL IV SCH (10:17)
[2021-03-01] MEDS: APIXABAN 5 MG TAB PO SCH ×2 (10:17→22:13)
[2021-03-01] MEDS: DOCUSATE SOD 100 MG CAP PO SCH ×2 (10:17→22:00)
[2021-03-01] MEDS: AMIODARONE HCL 200 MG TAB PO SCH ×2 (10:17→22:13)
[2021-03-01] MEDS: METOPROLOL TARTRATE 50 MG TAB PO SCH ×2 (10:17→22:00)
[2021-03-01] MEDS ORDERED: cefTRIAXone 1GM/50ML D5W 50 ML IV ONE (12:15)
[2021-03-01 12:43] VITALS: BP 120/67
[2021-03-01 14:37] LABS: Urine Bacteria MOD /hpf (None Seen); Urine Blood 1+ /uL (Negative); Urine Mucus FEW (None Seen); Urine Specific Gravity 1.009 (1.001-1.035); Urine WBC 29 /hpf (0 - 3); Urine WBC Clumps PRESENT /hpf (None Seen)
[2021-03-01] MEDS: ACETAMINOPHEN 325 MG TAB PO PRN (16:41)
[2021-03-01 17:08] VITALS: BP 117/61
[2021-03-01 21:40] VITALS: BP 121/73
[2021-03-02 05:34] VITALS: BP 130/71
[2021-03-02] MEDS: VERAPAMIL HCL 40 MG TAB PO SCH ×3 (05:53→22:04)
[2021-03-02 06:06] LABS: Basophils # (auto) 0 10 ^3/uL (0-0.2); Basophils % (auto) 0.1 % (0.0-2.0); Eosinophils # (auto) 0.3 10 ^3/uL (0-0.8); Eosinophils % (auto) 1.2 % (0.0-7.0); Hematocrit 29.9 % (41.0-53.0); Hemoglobin 10.3 g/dL (13.5-17.5); Lymphocytes # (auto) 0.9 10 ^3/uL (0.4-5.4); Lymphocytes % (auto) 4.3 % (10.0-50.0); Mean Corpuscular Hemoglobin 30.7 pg (28.0-32.0); Mean Corpuscular Hgb Conc. 34.5 g/dL (32.0-36.0); Mean Corpuscular Volume 88.8 fL (80.0-100.0); Monocytes # (auto) 1.5 10 ^3/uL (0-1.3); Monocytes % (auto) 7.2 % (0.0-12.0); Neutrophils # (auto) 18.1 10 ^3/uL (1.6-8.6); Neutrophils % (auto) 87.2 % (37.0-80.0); Nucleated Red Blood Cells % 0.1 %; Platelet Count (auto) 161 10^3/uL (140-450); Red Blood Cells 3.37 10^6/uL (4.5-5.90); Red Cell Distribution Width 17.8 % (11.8-14.3); White Blood Cell 20.7 10^3/uL (4.4-10.8)
[2021-03-02 06:37] LABS: Potassium 3.9 mmol/L (3.5-5.1)
[2021-03-02 06:48] LABS: Albumin 2.4 g/dL (3.4-5.0); BUN/Creatinine Ratio 32.8; Bilirubin, Total 1.4 mg/dL (0.2-1.0); Calcium 8.8 mg/dL (8.5-10.1); Total Protein 6.7 g/dL (6.4-8.2)
[2021-03-02 09:00] VITALS: BP 141/89
[2021-03-02] MEDS: cefTRIAXone 1GM/50ML D5W 50 ML IV SCH (10:11)
[2021-03-02] MEDS: Ensure Enlive Strawberry 8oz Bottle PO SCH ×3 (10:11→17:39)
[2021-03-02] MEDS: APIXABAN 5 MG TAB PO SCH ×2 (10:11→22:05)
[2021-03-02] MEDS: AMIODARONE HCL 200 MG TAB PO SCH ×2 (10:11→22:05)
[2021-03-02] MEDS: DOCUSATE SOD 100 MG CAP PO SCH ×2 (10:11→22:00)
[2021-03-02] MEDS: METOPROLOL TARTRATE 50 MG TAB PO SCH ×2 (10:12→22:06)
[2021-03-02 13:15] VITALS: BP 127/70
[2021-03-02 17:09] VITALS: BP 140/77
[2021-03-02 22:00] VITALS: BP 122/61
[2021-03-03 05:00] VITALS: BP 128/71
[2021-03-03] MEDS: VERAPAMIL HCL 40 MG TAB PO SCH ×3 (06:48→23:14)
[2021-03-03 08:45] VITALS: BP 136/73
[2021-03-03] MEDS: cefTRIAXone 1GM/50ML D5W 50 ML IV SCH (09:48)
[2021-03-03] MEDS: Ensure Enlive Strawberry 8oz Bottle PO SCH ×3 (09:48→17:37)
[2021-03-03] MEDS: APIXABAN 5 MG TAB PO SCH ×2 (09:49→21:51)
[2021-03-03] MEDS: DOCUSATE SOD 100 MG CAP PO SCH ×3 (09:49→21:51)
[2021-03-03] MEDS: AMIODARONE HCL 200 MG TAB PO SCH ×2 (09:49→21:51)
[2021-03-03] MEDS: METOPROLOL TARTRATE 50 MG TAB PO SCH ×2 (09:49→21:52)
[2021-03-03 10:29] LABS: Basophils # (auto) 0 10 ^3/uL (0-0.2); Basophils % (auto) 0.3 % (0.0-2.0); Eosinophils # (auto) 0.5 10 ^3/uL (0-0.8); Eosinophils % (auto) 4.3 % (0.0-7.0); Hematocrit 29.7 % (41.0-53.0); Lymphocytes # (auto) 0.8 10 ^3/uL (0.4-5.4); Mean Corpuscular Hemoglobin 30.1 pg (28.0-32.0); Mean Corpuscular Hgb Conc. 33.9 g/dL (32.0-36.0); Mean Corpuscular Volume 88.9 fL (80.0-100.0); Monocytes # (auto) 0.9 10 ^3/uL (0-1.3); Monocytes % (auto) 7.5 % (0.0-12.0); Neutrophils # (auto) 9.5 10 ^3/uL (1.6-8.6); Neutrophils % (auto) 80.9 % (37.0-80.0); Platelet Count (auto) 183 10^3/uL (140-450); Red Blood Cells 3.33 10^6/uL (4.5-5.90); White Blood Cell 11.7 10^3/uL (4.4-10.8)
[2021-03-03 10:50] LABS: Calcium 8.8 mg/dL (8.5-10.1); Potassium 4.2 mmol/L (3.5-5.1)
[2021-03-03 13:00] VITALS: BP 120/53
[2021-03-03 16:47] VITALS: BP 121/63
[2021-03-03] MEDS ORDERED: FUROSEMIDE 20 MG/2 ML VIAL IV ONE (21:00)
[2021-03-03 22:00] VITALS: BP 115/46
[2021-03-04 05:00] VITALS: BP 131/66
[2021-03-04 06:25] LABS: Basophils # (auto) 0.1 10 ^3/uL (0-0.2); Basophils % (auto) 0.9 % (0.0-2.0); Eosinophils # (auto) 0.5 10 ^3/uL (0-0.8); Eosinophils % (auto) 4.9 % (0.0-7.0); Hematocrit 31.7 % (41.0-53.0); Hemoglobin 10.7 g/dL (13.5-17.5); Lymphocytes % (auto) 10.7 % (10.0-50.0); Mean Corpuscular Hemoglobin 30.1 pg (28.0-32.0); Mean Corpuscular Hgb Conc. 33.7 g/dL (32.0-36.0); Mean Corpuscular Volume 89.3 fL (80.0-100.0); Monocytes # (auto) 0.9 10 ^3/uL (0-1.3); Neutrophils # (auto) 7.2 10 ^3/uL (1.6-8.6); Neutrophils % (auto) 74.5 % (37.0-80.0); Platelet Count (auto) 203 10^3/uL (140-450); Red Blood Cells 3.55 10^6/uL (4.5-5.90); Red Cell Distribution Width 17.2 % (11.8-14.3); White Blood Cell 9.6 10^3/uL (4.4-10.8)
[2021-03-04 06:47] LABS: BUN/Creatinine Ratio 32.1; Calcium 8.8 mg/dL (8.5-10.1); Potassium 4.4 mmol/L (3.5-5.1)
[2021-03-04] MEDS: VERAPAMIL HCL 40 MG TAB PO SCH ×3 (06:49→22:09)
[2021-03-04] MEDS: Ensure Enlive Strawberry 8oz Bottle PO SCH ×3 (08:13→18:00)
[2021-03-04] MEDS: DOCUSATE SOD 100 MG CAP PO SCH ×2 (08:34→22:10)
[2021-03-04] MEDS: cefTRIAXone 1GM/50ML D5W 50 ML IV SCH (08:34)
[2021-03-04 09:00] VITALS: BP 123/64
[2021-03-04] MEDS: METOPROLOL TARTRATE 50 MG TAB PO SCH ×2 (09:30→22:10)
[2021-03-04] MEDS: FUROSEMIDE 20 MG/2 ML VIAL IV SCH (09:30)
[2021-03-04] MEDS: APIXABAN 5 MG TAB PO SCH ×2 (10:23→22:10)
[2021-03-04] MEDS: AMIODARONE HCL 200 MG TAB PO SCH ×2 (10:23→22:09)
[2021-03-04] MEDS: CIPROFLOXACIN HCL 500 MG TAB PO SCH ×2 (11:31→22:10)
[2021-03-04 13:18] VITALS: BP 115/70
[2021-03-04 16:22] VITALS: BP 131/73
[2021-03-04 22:05] VITALS: BP 115/63
[2021-03-05 05:28] VITALS: BP 124/71
[2021-03-05 06:03] LABS: BUN/Creatinine Ratio 29.7; Calcium 9.2 mg/dL (8.5-10.1); Potassium 4.6 mmol/L (3.5-5.1)
[2021-03-05] MEDS: VERAPAMIL HCL 40 MG TAB PO SCH ×2 (06:03→13:25)
[2021-03-05 09:00] VITALS: BP 133/73
[2021-03-05] MEDS ORDERED: METO-159 PO (09:22)
[2021-03-05] MEDS ORDERED: AMIO200T33 PO (09:22)
[2021-03-05] MEDS ORDERED: VERA120T3 PO (09:22)
[2021-03-05] MEDS ORDERED: CIP500T PO (09:22)
[2021-03-05] MEDS ORDERED: APIX5TAB PO (09:22)
[2021-03-05] MEDS: Ensure Enlive Strawberry 8oz Bottle PO SCH ×2 (09:49→12:44)
[2021-03-05] MEDS: APIXABAN 5 MG TAB PO SCH (09:50)
[2021-03-05] MEDS: DOCUSATE SOD 100 MG CAP PO SCH (09:50)
[2021-03-05] MEDS: METOPROLOL TARTRATE 50 MG TAB PO SCH (09:51)
[2021-03-05] MEDS: CIPROFLOXACIN HCL 500 MG TAB PO SCH (09:51)
[2021-03-05] MEDS: AMIODARONE HCL 200 MG TAB PO SCH (09:51)
[2021-03-05] MEDS: FUROSEMIDE 20 MG/2 ML VIAL IV SCH (09:53)
[2021-03-05 13:00] VITALS: BP 117/76
[2021-03-05 14:34] VITALS: BP 133/73
[2021-03-05] MEDS ORDERED: VERA240C2 PO (14:59)
== END 2021-03-05 15:30 | disposition home health service (06) | DRG 222 ==
LOC: ER 15:21 → EDBD 15:21 → ICU WEST 18:21 → TELE-WESTW 02-27 18:38
PROVIDERS: ADMIT Nurse Practitioner Acute Care; ATTEND Internal Medicine
PROC: 5A1945Z Respiratory Ventilation, 24-96 Consecutive Hours (ICD-10-PCS; principal; 2021-02-16)
PROC: 0BH17EZ Insertion of Endotracheal Airway into Trachea, Via Natural or Artificial Opening (ICD-10-PCS; 2021-02-16)
PROC: 4A023N8 Measurement of Cardiac Sampling and Pressure, Bilateral, Percutaneous Approach (ICD-10-PCS; 2021-02-24)
PROC: B2111ZZ Fluoroscopy of Multiple Coronary Arteries using Low Osmolar Contrast (ICD-10-PCS; 2021-02-24)
PROC: B2151ZZ Fluoroscopy of Left Heart using Low Osmolar Contrast (ICD-10-PCS; 2021-02-24)
PROC: 0JH608Z Insertion of Defibrillator Generator into Chest Subcutaneous Tissue and Fascia, Open Approach (ICD-10-PCS; 2021-02-28)
PROC: 02HK3KZ Insertion of Defibrillator Lead into Right Ventricle, Percutaneous Approach (ICD-10-PCS; 2021-02-28)
PROC: 02H63KZ Insertion of Defibrillator Lead into Right Atrium, Percutaneous Approach (ICD-10-PCS; 2021-02-28)
PROC: 5A2204Z Restoration of Cardiac Rhythm, Single (ICD-10-PCS; 2021-02-28)
DX: R57.0 Cardiogenic shock (principal); J96.21 Acute and chronic respiratory failure with hypoxia; I21.A1 Myocardial infarction type 2; I46.9 Cardiac arrest, cause unspecified; G93.41 Metabolic encephalopathy; J18.9 Pneumonia, unspecified organism; I50.21 Acute systolic (congestive) heart failure; A41.9 Sepsis, unspecified organism; N17.0 Acute kidney failure with tubular necrosis; I49.01 Ventricular fibrillation; S22.49XA Multiple fractures of ribs, unspecified side, initial encounter for closed fracture; I47.2 Ventricular tachycardia; L03.115 Cellulitis of right lower limb; L03.116 Cellulitis of left lower limb; I13.0 Hypertensive heart and chronic kidney disease with heart failure and stage 1 through stage 4 chronic kidney disease, or unspecified chronic kidney disease; J98.11 Atelectasis; N39.0 Urinary tract infection, site not specified; Z99.11 Dependence on respirator [ventilator] status; D68.59 Other primary thrombophilia; I95.9 Hypotension, unspecified; Z20.822 Contact with and (suspected) exposure to COVID-19; E66.01 Morbid (severe) obesity due to excess calories; I48.91 Unspecified atrial fibrillation; I35.0 Nonrheumatic aortic (valve) stenosis; E78.5 Hyperlipidemia, unspecified; B96.1 Klebsiella pneumoniae [K. pneumoniae] as the cause of diseases classified elsewhere; B96.5 Pseudomonas (aeruginosa) (mallei) (pseudomallei) as the cause of diseases classified elsewhere; I42.2 Other hypertrophic cardiomyopathy; N14.1 Nephropathy induced by other drugs, medicaments and biological substances; N18.30 Chronic kidney disease, stage 3 unspecified; T50.8X5A Adverse effect of diagnostic agents, initial encounter; Z79.899 Other long term (current) drug therapy; Z79.891 Long term (current) use of opiate analgesic; Z79.01 Long term (current) use of anticoagulants
CPT/HCPCS: 31500; 33249; 36415; 36556; 36600; 70450; 71045; 71250; 74176; 76775; 80048; 80053; 80061; 81001; 82271; 82306; 82570; 82728; 82805; 83036; 83605; 83615; 83735; 83880; 83970; 84100; 84132; 84156; 84300; 84443; 84484; 85014; 85018; 85025; 85379; 85610; 85730; 86141; 87040; 87070; 87077; 87081; 87086; 87088; 87186; 87205; 87426; 93005; 93306; 93460; 93925; 93970; 94002; 94003; 94640; 97110; 97116; 97530; 99152; 99153; 99291; A4618; C1751; C9113; G0378; J0690; J0696; J2185; J2250; J2405; J2543; J3490; J7060; Q9967